=== PATIENT | male | born 1960 | race Caucasian/White ===

== ENCOUNTER → 2016-04-23 | Outpatient (CLI) | payer BC ==
--- NOTE | 2016-04-23 11:23 | FL ---
Barium swallow HISTORY: Difficulty swallowing, dysphasia, R13.10 Patient was given high density barium to drink. Real-time evaluation performed in the frontal and lat eral projections under real-time fluoroscopy. Patient also received CO2 crystals. Swallowing mechanism is normal. Some degenerative disc change in the visualized cervical spine is not ed. Smooth anterior impression noted on the anterior cervical esophagus measures approximately 4 to 5 mm. There is no obstruction to flow. No laryngeal penetration or aspiration. Swallowing mechanism is normal. No gastroesophageal reflux or evidence hiatal hernia. IMPRESSION: There may be an esophageal web present.
== END | disposition home or self-care (01) ==
LOC: RADFLWHC 10:02
PROVIDERS: ATTEND Internal Medicine
DX: R13.10 Dysphagia, unspecified (principal)
CPT/HCPCS: 74220

== ENCOUNTER → 2016-04-29 | Outpatient (CLI) | payer BC ==
--- NOTE | 2016-04-29 07:43 | US ---
EXAMINATION TYPE: US abdomen complete DATE OF EXAM: 04/29/2016 7:25 AM COMPARISON: NONE CLINICAL HISTORY: RUQ pain that radiates to back. EXAM MEASUREMENTS: Liver Length: 12.8 cm Gallbladder Wall: 0.3 cm CBD: 0.5 cm Spleen: 13.3 cm Right Kidney: 11.3 x 5.3 x 5.4 cm Left Kidney: 11.1 x 6.0 x 5.3 cm ANATOMY: Findings some fatty sparing noted near gallbladder Pancreas: visualized portions within normal limits Liver: Within normal limits Gallbladder: no stones seen Evidence for sonographic Barger's sign: no CBD: Within normal limits Spleen: Within normal limits Right Kidney: No hydronephrosis or masses seen Left Kidney: No hydronephrosis or masses seen Upper IVC: Within normal limits Abd Aorta: Within normal limits The liver is heterogenous. The intrahepatic portion of the IVC and proximal abdominal aorta are withi n normal limits. There is no evidence of cholelithiasis. Common bile duct is unremarkable. The vis ualized portions of the pancreas are homogenous. The spleen is unremarkable. Kidneys are symmetric and free of hydronephrosis. No renal lesions are seen. IMPRESSION: Probable fatty hepatic infiltration with areas of focal fatty sparing.
== END | disposition home or self-care (01) ==
LOC: RADUSWWP 07:00
PROVIDERS: ATTEND Internal Medicine
DX: K83.9 Disease of biliary tract, unspecified (principal)
CPT/HCPCS: 76700

== ENCOUNTER 2023-12-08 09:44 | Day surgery (SDC) | payer BC ==
[2023-12-07 11:42] VITALS: BMI 36.6
[~2023-12-08 09:44] MED LIST: LIDOCAINE 1% (10MG/ML) FOR IV START INTRADERMA PRN
[2023-12-08] MEDS: IV FLUID CONTINUATION 1,000 ML IV ONE (10:19)
[2023-12-08 10:27] VITALS: RESP 16; TEMP 97.4
[2023-12-08] MEDS: LACTATED RINGERS 1,000 ML IV SCH (10:36)
[2023-12-08] MEDS ORDERED: PROPOFOL 10 MG/ML 20 ML VIAL IV ONE (11:01)
[2023-12-08] MEDS ORDERED: LIDOCAINE 1% INJ 10MG/ML (20 ML MDV) ONE (11:01)
--- NOTE | 2023-12-08 11:03 | P.GSHP ---
History of Present Illness H&P Date: 12/08/23 Chief Complaint: Colon cancer screening 63-year-old male here for colonoscopy. Apparently his last colonoscopy was 10 to 11 years ago when he had polyps. No bowel complaints. No family history of colon cancer. Past Medical History Past Medical History: Hyperlipidemia, Hypertension History of Any Multi-Drug Resistant Organisms: None Reported Past Surgical History: Joint Replacement, Orthopedic Surgery Additional Past Surgical History / Comment(s): BILAT TKA. BILAT KNEE SCOPES. BILAT CTR. COLONOSCOPY Past Anesthesia/Blood Transfusion Reactions: No Reported Reaction Smoking Status: Never smoker - Past Family History Mother Family Medical History: No Reported History Medications and Allergies Home Medications Medication Instructions Recorded Confirmed Type Aspirin EC [Ecotrin Low Dose] 81 mg PO DAILY 12/07/23 12/08/23 History Ezetimibe [Zetia] 10 mg PO DAILY 12/07/23 12/08/23 History Rosuvastatin Calcium [Crestor] 5 mg PO HS 12/07/23 12/08/23 History Valsartan/Hydrochlorothiazide 1 each PO DAILY 12/07/23 12/08/23 History [Valsartan-Hctz 160-12.5 mg Tab] amLODIPine [Norvasc] 5 mg PO HS 12/07/23 12/08/23 History Allergies Allergy/AdvReac Type Severity Reaction Status Date / Time Sulfa (Sulfonamide Allergy Unknown Verified 12/08/23 10:27 Antibiotics) Childhood Surgical - Exam Vital Signs Temp Pulse Resp BP Pulse Ox 97.4 F L 78 16 145/86 97 12/08/23 10:25 12/08/23 10:25 12/08/23 10:25 12/08/23 10:25 12/08/23 10:25 Physical exam: General: Well-developed, well-nourished HEENT: Normocephalic, sclerae nonicteric Abdomen: Nontender, nondistended Extremities: No edema Neuro: Alert and oriented Assessment and Plan (1) Colon cancer screening Narrative/Plan: Will proceed with colonoscopy at this time. Current Visit: Yes Status: Acute Code(s): Z12.11 - ENCOUNTER FOR SCREENING FOR MALIGNANT NEOPLASM OF COLON SNOMED Code(s): 475216368
--- NOTE | 2023-12-08 11:15 | P.PCN ---
Date of Procedure: 12/08/23 Procedure(s) Performed: PREOPERATIVE DIAGNOSIS: Colon cancer screening with history of polyps POSTOPERATIVE DIAGNOSIS: Ascending colon polyp PROCEDURE: Colonoscopy with snare polypectomy ANESTHESIA: MAC SURGEON: Jack Wall M.D. SPECIMENS: Polyp ENDOSCOPIC PROCEDURE: The patient was placed on the endoscopy table in the left decubitus position. The Olympus colonoscope was inserted into the anus and passed under direct visualization to the base of the cecum. The appendiceal orifice was visualized. From that point the scope was slowly withdrawn inspecting all surfaces carefully. There were no neoplastic inflammatory or polypoid lesions throughout the cecum. In the ascending colon a small polyp was seen and removed using the snare with cautery technique. The remainder of the ascending transverse descending sigmoid and rectum appeared normal. There was mild scattered diverticulosis. Digital rectal examination was normal. The patient was taken to the recovery room in stable condition per anesthesia guidelines. RECOMMENDATIONS: Await biopsy results. Anticipate repeat colonoscopy 5 to 7 years.
[2023-12-08 11:36] VITALS: BP 125/81; PULSE 65
== END 2023-12-08 11:53 | disposition home or self-care (01) ==
LOC: ORWHC2ENDO 09:44
PROVIDERS: ATTEND Surgery
DX: Z12.11 Encounter for screening for malignant neoplasm of colon (principal); D12.2 Benign neoplasm of ascending colon; K57.30 Diverticulosis of large intestine without perforation or abscess without bleeding; E78.5 Hyperlipidemia, unspecified; I10 Essential (primary) hypertension; Z88.1 Allergy status to other antibiotic agents; Z88.2 Allergy status to sulfonamides; Z79.899 Other long term (current) drug therapy; Z98.890 Other specified postprocedural states
CPT/HCPCS: 45385; 88305